=== PATIENT | female | born 1990 | race Caucasian/White ===

== ENCOUNTER 2016-10-04 11:06 | Emergency (ER) | payer SELFPAY ==
[~2016-10-04] VITALS: Ht 165.1 cm; Wt 77.3 kg
[~2016-10-04 11:06] MED LIST: ANUSOL HC CREAM30 GM TP; ATARAX 10MG10 MG/TAB PO; BENADRYL25 M2 PO; CELEXA 20MG20 MG/TAB PO; CEPHALEXIN250 M1 PO; CIPRO 500MG TA500 MG PO; FERROUS SULFATE65 MG PO; FLAGYL500 MG PO; FLEXERIL 1010 MG/TAB PO; LEVAQUIN 750MG750 M1 PO; MOTRIN 800800 MG/TAB PO; NORCO 325 MG-51 TAB PO; NORCO 325 MG-7.1 TAB PO; PERCOCET 325 MG1 TA2 PO; ROBAXIN 75750 MG/TAB PO; STOOL SOFTENER100 M2 PO; ULTRAM 50MG TAB50 MG PO; ZOFRAN 4MG T4 MG/TAB PO
[2016-10-04 11:32] VITALS: BP 135/77; PULSE 74; TEMP 98.3
== END 2016-10-04 13:06 | disposition home or self-care (01) ==
LOC: COL.ER 11:06
DX: S60.221A Contusion of right hand, initial encounter (principal); W22.01XA Walked into wall, initial encounter

== ENCOUNTER 2018-05-31 22:33 | Emergency (ER) | payer SELFPAY ==
[~2018-05-31] VITALS: Ht 162.6 cm; Wt 71.4 kg
[2018-05-31 22:39] VITALS: BP 154/83; TEMP 98
[2018-05-31 23:01] LABS: COLLECTION METHOD CLEAN CATCH
[2018-05-31 23:05] LABS: BASO # 0.1 (0.0-0.2); BASO % 0.6 % (0.0-2.0); EOS # 0.2 (0.0-0.7); EOS % 2.1 % (0-4.0); GRAN # 6.9 (1.4-6.5); GRAN % 67.3 % (42.2-75.2); HEMATOCRIT 40.1 % (37.0-47.0); LYMPH # 2.3 (1.2-3.4); LYMPH % 22.2 % (20.0-51.0); MEAN CELL VOLUME 86 fl (80.0-100.0); MEAN CORPUSCULAR HEMOGLOBIN 28 pg (27.0-31.0); MEAN CORPUSCULAR HGB CONC 32 g/dl (33.0-37.0); MEAN PLATELET VOLUME 9.2 fl (7.4-10.4); MONO # 0.8 (0.1-0.6); MONO % 7.5 % (1.7-9.3); PLATELET COUNT 325 K/mm3 (130-400); RED BLOOD COUNT 4.67 M/mm3 (4.10-5.30)
[2018-05-31 23:18] LABS: ALANINE AMINOTRANSFERASE 37 U/L (9-52); ALKALINE PHOSPHATASE 46 U/L (50-136); ANION GAP 3 mmol/L (7-16); AST,SGOT 29 U/L (15-37); BILIRUBIN,TOTAL 0.2 mg/dL (0.0-1.0); BLOOD UREA NITROGEN 12 mg/dL (7-17); CALCIUM 9.1 mg/dL (8.4-10.2); CARBON DIOXIDE 32 mmol/L (22-30); CHLORIDE 103 mmol/L (98-107); GLUCOSE 95 mg/dL (74-106); LIPASE 142 U/L (23-300); POTASSIUM 3.8 mmol/L (3.4-5.0); SODIUM 139 mmol/L (137-145); TOTAL PROTEIN 7.2 gm/dL (6.4-8.2)
[2018-05-31 23:21] LABS: C-REACTIVE PROTEIN < 0.5 mg/dL (0.0-0.9)
[2018-05-31 23:23] LABS: AMORPHOUS CRYSTAL Present /uL; MUCOUS Present /lpf; PH 6 (5-8); URINE APPEARANCE Cloudy; URINE BACTERIA Rare /hpf; URINE BILIRUBIN Negative (NEGATIVE); URINE BLOOD Negative (NEGATIVE); URINE COLOR Yellow; URINE GLUCOSE Negative (NEGATIVE); URINE KETONE Negative (NEGATIVE); URINE LEUKOCYTE ESTERASE 2+ (NEGATIVE); URINE NITRATE Negative (NEGATIVE); URINE PROTEIN(semi-quant) Negative (NEGATIVE); URINE UROBILINOGEN Negative (NEGATIVE)
[2018-06-01] MEDS ORDERED: CIPRO 500MG TA500 MG PO (00:55)
[2018-06-01 01:29] VITALS: PULSE 91
== END 2018-06-01 01:31 | disposition home or self-care (01) ==
LOC: COL.ER 22:33
PROVIDERS: Nurse Practitioner
DX: N39.0 Urinary tract infection, site not specified (principal); F17.210 Nicotine dependence, cigarettes, uncomplicated; Z98.51 Tubal ligation status; Z90.49 Acquired absence of other specified parts of digestive tract; Z98.890 Other specified postprocedural states
CPT/HCPCS: A4216; J0696; J2765; J3010; J7030; Q9967

== ENCOUNTER 2019-02-03 16:34 | Emergency (ER) | payer SELFPAY ==
[~2019-02-03] VITALS: Ht 165.1 cm; Wt 72.5 kg
[2019-02-03 16:51] VITALS: TEMP 97.8
[2019-02-03] MEDS ORDERED: ASPIRIN 32325 MG/TAB PO (16:58)
[2019-02-03] MEDS ORDERED: MOTRIN 800800 MG/TAB PO (16:59)
[2019-02-03 17:32] LABS: COLLECTION METHOD CLEAN CATCH
[2019-02-03 17:42] LABS: MUCOUS Present /lpf; PH 7 (5-8); URINE APPEARANCE Cloudy; URINE BACTERIA Occasional /hpf; URINE BILIRUBIN Negative (NEGATIVE); URINE BLOOD 2+ (NEGATIVE); URINE COLOR Yellow; URINE GLUCOSE Negative (NEGATIVE); URINE KETONE Negative (NEGATIVE); URINE LEUKOCYTE ESTERASE Negative (NEGATIVE); URINE NITRATE Positive (NEGATIVE); URINE PROTEIN(semi-quant) Negative (NEGATIVE); URINE RBC 0-2 /hpf; URINE UROBILINOGEN Negative (NEGATIVE)
[2019-02-03 17:51] LABS: BASO % 0.5 % (0.0-2.0); EOS # 0.2 (0.0-0.7); EOS % 1.9 % (0-4.0); GRAN # 5.4 (1.4-6.5); GRAN % 66.1 % (42.2-75.2); HEMATOCRIT 39.4 % (37.0-47.0); HEMOGLOBIN 12.7 g/dl (12.5-16.0); LYMPH % 24.4 % (20.0-51.0); MEAN CELL VOLUME 86 fl (80.0-100.0); MEAN CORPUSCULAR HEMOGLOBIN 28 pg (27.0-31.0); MEAN CORPUSCULAR HGB CONC 32 g/dl (33.0-37.0); MEAN PLATELET VOLUME 9.5 fl (7.4-10.4); MONO # 0.6 (0.1-0.6); MONO % 6.9 % (1.7-9.3); PLATELET COUNT 332 K/mm3 (130-400); RED BLOOD COUNT 4.59 M/mm3 (4.10-5.30); REDCELL DISTRIBUTION WIDTH-CV 13.1 % (11.5-14.5)
[2019-02-03 17:59] LABS: TRICYCLIC ANTIDEPRESS URINE NEGATIVE
[2019-02-03 18:16] LABS: ACETAMINOPHEN < 10 ug/mL (10-30); ALANINE AMINOTRANSFERASE 16 U/L (9-52); ALBUMIN 3.9 gm/dL (3.5-5.0); ALCOHOL(ethanol),MEDICAL < 10 mg/dL; ALKALINE PHOSPHATASE 60 U/L (50-136); ANION GAP 10 mmol/L (7-16); AST,SGOT 26 U/L (15-37); BILIRUBIN,TOTAL 0.6 mg/dL (0.0-1.0); BLOOD UREA NITROGEN 6 mg/dL (7-17); CARBON DIOXIDE 25 mmol/L (22-30); CHLORIDE 105 mmol/L (98-107); CREATININE, serum 0.72 (0.52-1.25); GLUCOSE 115 mg/dL (74-106); POTASSIUM 3.5 mmol/L (3.4-5.0); SALICYLATE 2.6 mg/dL; SODIUM 140 mmol/L (137-145); TOTAL PROTEIN 7.1 gm/dL (6.4-8.2)
[2019-02-03] MEDS ORDERED: MACROBID 1100 MG/CAP PO (20:05)
[2019-02-03] MEDS ORDERED: AMOXICILLIN 8751 TAB PO (20:05)
[2019-02-03 20:13] VITALS: BP 142/86; PULSE 91
== END 2019-02-03 20:13 | disposition home or self-care (01) ==
LOC: COL.ER 16:34
PROVIDERS: Physician Assistant
DX: S16.1XXA Strain of muscle, fascia and tendon at neck level, initial encounter (principal); F41.9 Anxiety disorder, unspecified; F32.9 Major depressive disorder, single episode, unspecified; N39.0 Urinary tract infection, site not specified; K08.89 Other specified disorders of teeth and supporting structures; F17.210 Nicotine dependence, cigarettes, uncomplicated; Z79.82 Long term (current) use of aspirin; Z79.1 Long term (current) use of non-steroidal anti-inflammatories (NSAID); X58.XXXA Exposure to other specified factors, initial encounter

== ENCOUNTER 2020-07-13 05:33 | Emergency (ER) | payer SELFPAY ==
[~2020-07-13] VITALS: Ht 165.1 cm; Wt 76.8 kg
[~2020-07-13 05:33] MED LIST changes: +AMOXICILLIN 8751 TAB PO; +ASPIRIN 32325 MG/TAB PO; +MACROBID 1100 MG/CAP PO
[2020-07-13 05:39] VITALS: TEMP 98.7
[2020-07-13] MEDS ORDERED: NAPROSYN500 MG PO (06:13)
[2020-07-13] MEDS ORDERED: FLEXERIL 1010 MG/TAB PO (06:13)
[2020-07-13] MEDS ORDERED: MEDROL 4MG DOSPA4 MG PO (06:13)
[2020-07-13 06:45] VITALS: BP 140/70; PULSE 103
== END 2020-07-13 06:48 | disposition other institution (70) ==
LOC: COL.ER 05:33
DX: M79.604 Pain in right leg (principal); F17.210 Nicotine dependence, cigarettes, uncomplicated; Z79.82 Long term (current) use of aspirin